=== PATIENT | female | born 2000 | race African-American/Black ===

== ENCOUNTER 2021-10-18 16:12 | Emergency (ER) | payer SELFPAY ==
[~2021-10-18] VITALS: Ht 170.2 cm; Wt 62.0 kg
[2021-10-18 16:21] VITALS: BP 128/75
[2021-10-18] MEDS ORDERED: ACYC200C31 MT (17:40)
== END 2021-10-18 17:52 | disposition home or self-care (01) ==
LOC: ER 16:12
DX: Z20.2 Contact with and (suspected) exposure to infections with a predominantly sexual mode of transmission (principal)
CPT/HCPCS: 81025; 87210; 99283; Z7610